=== PATIENT | male | born 1975 | race Caucasian/White ===

== ENCOUNTER 2018-09-27 14:14 | Emergency (ER) | payer MEDICARE, MEDICAID ==
[~2018-09-27] VITALS: Ht 185.4 cm; Wt 127.3 kg
[2018-09-27] MEDS ORDERED: KETO10TAB PO (17:39)
[2018-09-27] MEDS ORDERED: GABA-845 PO (17:39)
[2018-09-27] MEDS ORDERED: ROBA500T PO (17:39)
[2018-09-27] MEDS ORDERED: METHOCARBAMOL 1,000 MG/10 ML VIAL (J2800) IM ONE (17:45)
[2018-09-27] MEDS ORDERED: GABAPENTIN 300 MG CAP PO ONE (17:45)
[2018-09-27] MEDS ORDERED: KETOROLAC 60 MG/2 ML VIAL (J1885) IM ONE (17:45)
[2018-09-27 18:37] VITALS: BP 135/88
== END 2018-09-27 19:06 | disposition home or self-care (01) ==
LOC: M ED 14:14
DX: M54.30 Sciatica, unspecified side (principal); G89.29 Other chronic pain; M19.90 Unspecified osteoarthritis, unspecified site; F17.210 Nicotine dependence, cigarettes, uncomplicated
CPT/HCPCS: 96372; 99283; J1885; J2800